=== PATIENT | female | born 1970 | race Caucasian/White ===

== ENCOUNTER → 2022-05-03 15:46 | Outpatient (BNVA) | payer OTHER, SELFPAY | PROVIDERS: Visit Provider Internal Medicine Endocrinology, Diabetes & Metabolism | DX: M81.0 Age-related osteoporosis without current pathological fracture (principal) ==

== ENCOUNTER 2022-06-17 14:56 | Outpatient (REF) | payer OTHER, SELFPAY ==
[2022-06-17 16:16] LABS: Alkaline Phosphatase 67 U/L (39-117)
== END 2022-06-17 14:57 | disposition home or self-care (01) ==
LOC: HO.LAB 14:56
PROVIDERS: Visit Provider Internal Medicine Endocrinology, Diabetes & Metabolism
DX: M81.0 Age-related osteoporosis without current pathological fracture (principal)
CPT/HCPCS: 36415; 84075

== ENCOUNTER 2022-06-20 08:17 | Outpatient (REF) | payer OTHER, SELFPAY ==
[2022-06-20 09:08] LABS: Creatinine, mg/dL 60.82
[2022-06-20 14:02] LABS: Creatinine, 24Hr Urine 0.9 G/Day (1.0-2.0); Total Volume 24 Hour Urine 1550 mL
[2022-06-21 16:53] LABS: Calcium, 24 Hr Urine 141 mg/24 h; Calcium/Creatinine Ratio 154 mg/g creat (30-275); Creatinine 24Hr Urine 0.91 g/24 h (0.50-2.15)
== END 2022-06-20 08:18 | disposition home or self-care (01) ==
LOC: HO.LNP 08:17
PROVIDERS: Visit Provider Internal Medicine Endocrinology, Diabetes & Metabolism
DX: M81.0 Age-related osteoporosis without current pathological fracture (principal)
CPT/HCPCS: 82340; 82570

== ENCOUNTER → 2022-08-30 15:52 | Outpatient (BNVA) | payer OTHER, SELFPAY | PROVIDERS: Visit Provider Internal Medicine Endocrinology, Diabetes & Metabolism ==

== ENCOUNTER → 2022-09-20 07:57 | Outpatient (BNVA) | payer OTHER, SELFPAY | PROVIDERS: Visit Provider Internal Medicine Endocrinology, Diabetes & Metabolism | DX: M81.0 Age-related osteoporosis without current pathological fracture (principal) | CPT/HCPCS: 96372; J3111 ==

== ENCOUNTER 2022-10-21 08:01 | Outpatient (AMB) | payer OTHER, SELFPAY ==
--- NOTE | 2022-10-21 08:23 | AM.OFFVISNUR ---
Intake Intake Visit Reasons: Evenity #2 Allergies No Known Allergies Allergy (Verified 08/30/22 16:09) Office Meds romosozumab-aqqg Performing Provider: Arslan Fall MD Administered by: Jose De Jesus Abarca RN on 10/21/22 08:15 Dose Route Admin Location Lot Number Expiration Date [employer] Financial Reporting Analyst 210 mg subcut right and left arms [id number] 01/07/25 56980-049-83 AMGEN Comments: consent obtained for Evenity injection. Coding Diagnoses Assessment & Plan Assessment & Plan Orders: Orders AMB Romosozumab Injection Patient Supplied Today M81.0 - Age-related osteoporosis without current pathological fracture
== END 2022-10-21 08:19 | disposition home or self-care (01) ==
PROVIDERS: Visit Provider Internal Medicine Endocrinology, Diabetes & Metabolism
DX: M81.0 Age-related osteoporosis without current pathological fracture (principal)

== ENCOUNTER → 2022-10-21 08:01 | Outpatient (BNVA) | payer OTHER, SELFPAY | PROVIDERS: Visit Provider Internal Medicine Endocrinology, Diabetes & Metabolism | DX: M81.0 Age-related osteoporosis without current pathological fracture (principal) | CPT/HCPCS: 96372; J3111 ==

== ENCOUNTER 2022-10-21 08:23 | Outpatient (REF) | payer OTHER, SELFPAY ==
[2022-10-25 10:44] LABS: Prot Elec - Albumin 4.3 g/dL (3.8-4.8); Prot Elec - Alpha1 0.3 g/dL (0.2-0.3); Prot Elec - Alpha2 0.7 g/dL (0.5-0.9); Prot Elec - Beta 1 0.4 g/dL (0.4-0.6); Prot Elec - Beta 2 0.3 g/dL (0.2-0.5)
== END 2022-10-21 08:24 | disposition home or self-care (01) ==
LOC: HO.10HDL 08:23
PROVIDERS: Visit Provider Internal Medicine Endocrinology, Diabetes & Metabolism
DX: M81.0 Age-related osteoporosis without current pathological fracture (principal)
CPT/HCPCS: 84165; 86335

== ENCOUNTER 2022-11-30 14:48 | Outpatient (REF) | payer OTHER, SELFPAY ==
[2022-11-30 16:09] LABS: Anion Gap 9 (12-20); Blood Urea Nitrogen 10 mg/dL (9-16); Calcium 9.4 mg/dL (8.4-10.2); Carbon Dioxide 27 mmol/L (22-29); Chloride 107 mmol/L (96-108); Estimated Glomerular Filt Rate > 60; Glucose Random 95 mg/dL (60-115); Potassium 3.7 mmol/L (3.3-5.1); Sodium 139 mmol/L (135-145)
== END 2022-11-30 14:49 | disposition home or self-care (01) ==
LOC: HO.LAB 14:48
PROVIDERS: PCP Student in an Organized Health Care Education/Training Program; Visit Provider Internal Medicine Endocrinology, Diabetes & Metabolism
DX: M81.0 Age-related osteoporosis without current pathological fracture (principal)
CPT/HCPCS: 36415; 80048

== ENCOUNTER 2022-12-01 10:59 | Outpatient (AMB) | payer OTHER, SELFPAY ==
--- NOTE | 2022-12-01 11:34 | AM.OFFVISNUR ---
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 bilateral upper posterior arms SQ. patient tolerated well with no bleeding. advised to schedule next dose in one month. Coding Diagnoses Assessment & Plan Assessment & Plan Orders: Orders AMB Romosozumab Injection Patient Supplied Today M81.0 - Age-related osteoporosis without current pathological fracture
== END 2022-12-01 11:20 | disposition home or self-care (01) ==
PROVIDERS: PCP Student in an Organized Health Care Education/Training Program; Visit Provider Internal Medicine Endocrinology, Diabetes & Metabolism
DX: M81.0 Age-related osteoporosis without current pathological fracture (principal)

== ENCOUNTER → 2022-12-01 | Outpatient (BNVA) | payer OTHER, SELFPAY | PROVIDERS: PCP Student in an Organized Health Care Education/Training Program; Visit Provider Internal Medicine Endocrinology, Diabetes & Metabolism | DX: M81.0 Age-related osteoporosis without current pathological fracture (principal) | CPT/HCPCS: 96372; J3111 ==

== ENCOUNTER 2023-01-03 15:53 | Outpatient (AMB) | payer OTHER, SELFPAY ==
[2023-01-03 15:56] VITALS: BP 100/68; PULSE 84; BMI 21.9
--- NOTE | 2023-01-03 15:56 | MHC.OFFVIS ---
Intake Vital Signs 01/03/23 15:56 Height 5 ft 4.61 in Weight 130 lb 1.164 oz BMI 21.9 BP 100/68 Blood Pressure Location Lt brachial Position Sitting Pulse 84 Pulse Source Pulse Oximeter Intake Visit Reasons: F/Up Osteoporosis/LVM Intake Note: Patient present today for Osteoporosis follow up visit. Materials Management Supervisor Required: No Accompanied by: Self / Same As Patient Allergies No Known Allergies Allergy (Verified 01/03/23 16:00) Medication List - Last Reconciled 01/03/23 by Arslan Fall MD romosozumab-aqqg (Evenity) 210 mg (2.34 mL) subcut .monthly valacyclovir 2,000 mg PO BID PRN HPI HPI Comments History of Present Illness Details 52 YO Female with is seen in consultation at the request of PCP for Osteoporosis. First diagnosed in couple of mos ago . Not Received treatment in the past. History of pathologic fracture broken rib from bra but no ONJ. Has several servings of dietary calcium per day in the form of broccoli and cottage cheese and OJ . Takes Calcium supplement 1200 mg daily in divided doses. Takes 600 IU of Vitamin D BID . Denies ever using PPI, anticoagulant, antiepileptic or glucocorticoid medication. Does weight bearing exercise 3 days per week in the form of waliking and tramboline . 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 UTD on dental cleanings and sees dentist every 6 months. No planned upcoming dental work or extractions. DXA dated 12/14/2021: T-score the femoral neck is -3.0 Labs: Secondary workup is negative Currently receiving Evenity injection started 09/2022 [facility] Medical History (Updated 05/03/22 @ 15:59 by Arslan Fall MD) Osteoporosis Surgical History Hx of colonoscopy with polypectomy Hx of screening mammography Family History Mother Lung cancer, Onset Age: 79 Father Arthritis Lymphoma Hypertension Maternal Uncle Colon cancer Maternal Grandfather Colon cancer Maternal Aunt Breast cancer Social History Household Members: Spouse and Children Household Members Other:: , 2 kids Alcohol intake: current Alcohol intake frequency: holidays/special occasions only Patient Tobacco Use Status: Never used Tobacco e-Cigarette/Vaping Use: Never Used Second Hand Smoke Exposure: Yes Physical Exam Vital Signs: Last Vital Signs Pulse 84 01/03/23 15:56 BP 100/68 01/03/23 15:56 BMI result Body Mass Index 21.9 Assessment & Plan Assessment & Plan (1) Osteoporosis: Code(s): M81.0 - Age-related osteoporosis without current pathological fracture Plan: This is a 52-year-old white female found to have osteoporosis. Secondary causes ruled out . Currently on Evenity since September 2019 The plan is to continue the Evenity. Will check basic metabolic panel and calcium in 2 months Orders: Orders AMB Romosozumab Injection Patient Supplied Today M81.0 - Age-related osteoporosis without current pathological fracture Calcium 2 Months M81.0 - Age-related osteoporosis without current pathological fracture Albumin Level 2 Months M81.0 - Age-related osteoporosis without current pathological fracture Basic Metabolic Panel 2 Months M81.0 - Age-related osteoporosis without current pathological fracture Medications: New romosozumab-aqqg 210 mg (2.34 mL) subcut ONCE 2.34 mL 0RF M81.0 - Age-related osteoporosis without current pathological fracture Coding Level of Care Code Est Pt Level 3 (14330) Diagnoses Osteoporosis M81.0
== END 2023-01-03 16:28 | disposition home or self-care (01) ==
PROVIDERS: PCP Student in an Organized Health Care Education/Training Program; Visit Provider Internal Medicine Endocrinology, Diabetes & Metabolism
DX: M81.0 Age-related osteoporosis without current pathological fracture (principal)
CPT/HCPCS: 99213

== ENCOUNTER 2023-01-03 15:53 | Outpatient (AMB) | payer OTHER, SELFPAY ==
--- NOTE | 2023-01-03 16:29 | AM.OFFVISNUR ---
Intake Intake Visit Reasons: Evenity Allergies No Known Allergies Allergy (Verified 01/03/23 16:00) Office Meds romosozumab-aqqg 210 mg/2.34 mL(105 mg/1.17 mL x2)subcutaneous syringe Performing Provider: Arslan Fall MD [place] [facility] [place] Administered by: Edison Darnell RN on 01/03/23 16:31 Dose Route Admin Location Dispensed Lot Number Expiration Date [facility] [employer] 210 mg subcut L and R arm 2.34 mL [id number] 01/07/25 AMGEN Coding Assessment & Plan Assessment & Plan Orders: Orders AMB Romosozumab Injection Patient Supplied Today M81.0 - Age-related osteoporosis without current pathological fracture
== END 2023-01-03 16:32 | disposition home or self-care (01) ==
PROVIDERS: PCP Student in an Organized Health Care Education/Training Program; Visit Provider Internal Medicine Endocrinology, Diabetes & Metabolism
DX: M81.0 Age-related osteoporosis without current pathological fracture (principal)

== ENCOUNTER → 2023-01-03 15:53 | Outpatient (BNVA) | payer OTHER, SELFPAY | PROVIDERS: PCP Student in an Organized Health Care Education/Training Program; Visit Provider Internal Medicine Endocrinology, Diabetes & Metabolism | DX: M81.0 Age-related osteoporosis without current pathological fracture (principal) | CPT/HCPCS: 96372; J3111 ==

== ENCOUNTER 2023-02-06 07:47 | Outpatient (AMB) | payer OTHER, SELFPAY ==
--- NOTE | 2023-02-06 08:18 | AM.OFFVISNUR ---
Intake Intake Visit Reasons: evenity Allergies No Known Allergies Allergy (Verified 01/03/23 16:00) Office Meds romosozumab-aqqg 210 mg/2.34 mL(105 mg/1.17 mL x2)subcutaneous syringe Performing Provider: Arslan Fall MD Performing Location: [facility] [place] [facility] Administered by: Falguni Mathew LPN on 02/06/23 08:18 Dose Route Admin Location Dispensed Lot Number Expiration Date [place] Juice Scaleman 210 mg subcut Right arm, left stomach 2.34 mL [id number] 01/07/25 AMGEN Coding Assessment & Plan Assessment & Plan Orders: Orders AMB Romosozumab Injection Patient Supplied Today M81.0 - Age-related osteoporosis without current pathological fracture Medications: Refilled romosozumab-aqqg (Evenity) 210 mg (2.34 mL) subcut .monthly 2.34 mL 11RF
--- NOTE | 2023-02-06 08:26 | AM.OFFVISNUR ---
Intake Intake Visit Reasons: evenity Allergies No Known Allergies Allergy (Verified 01/03/23 16:00) Office Meds romosozumab-aqqg 210 mg/2.34 mL(105 mg/1.17 mL x2)subcutaneous syringe Performing Provider: Arslan Fall MD Performing Location[place] [facility] [place] Administered by: Falguni Mathew LPN on 02/06/23 08:18 Dose Route Admin Location Dispensed Lot Number Expiration Date [employer] Mobile Tester 210 mg subcut Right arm, left stomach 2.34 mL [id number] 01/07/25 AMGEN Coding Assessment & Plan Assessment & Plan Orders: Orders AMB Romosozumab Injection Patient Supplied Today M81.0 - Age-related osteoporosis without current pathological fracture AMB Romosozumab Injection Patient Supplied Today M81.0 - Age-related osteoporosis without current pathological fracture Medications: New romosozumab-aqqg 210 mg (2.34 mL) subcut ONCE 2.34 mL 0RF M81.0 - Age-related osteoporosis without current pathological fracture Refilled romosozumab-aqqg (Evenity) 210 mg (2.34 mL) subcut .monthly 2.34 mL 11RF
== END 2023-02-06 08:20 | disposition home or self-care (01) ==
PROVIDERS: PCP Student in an Organized Health Care Education/Training Program; Visit Provider Internal Medicine Endocrinology, Diabetes & Metabolism
DX: M81.0 Age-related osteoporosis without current pathological fracture (principal)

== ENCOUNTER → 2023-02-06 07:47 | Outpatient (BNVA) | payer OTHER, SELFPAY | PROVIDERS: PCP Student in an Organized Health Care Education/Training Program; Visit Provider Internal Medicine Endocrinology, Diabetes & Metabolism | DX: M81.0 Age-related osteoporosis without current pathological fracture (principal) | CPT/HCPCS: 96372; J3111 ==

== ENCOUNTER 2023-03-09 08:01 | Outpatient (AMB) | payer OTHER, SELFPAY ==
--- NOTE | 2023-03-09 08:07 | AM.OFFVISNUR ---
Intake Intake Visit Reasons: Evenity Allergies No Known Allergies Allergy (Verified 01/03/23 16:00) Office Meds romosozumab-aqqg 210 mg/2.34 mL(105 mg/1.17 mL x2)subcutaneous syringe Performing Provider: Arslan Fall MD Performing Location: [facility] Endocr[facility] Administered by: Edison Darnell RN on 03/09/23 08:07 Dose Route Admin Location Dispensed Lot Number Expiration Date [facility] Supervisor Cold Rolling 210 mg subcut R arm and L abd 2.34 mL [id number] 06/07/25 AMGEN Comments: Patient consented to Evenity injections. Denies adverse reactions. Coding Assessment & Plan Assessment & Plan Orders: Orders AMB Romosozumab Injection Patient Supplied Today M81.0 - Age-related osteoporosis without current pathological fracture
== END 2023-03-09 08:09 | disposition home or self-care (01) ==
PROVIDERS: PCP Student in an Organized Health Care Education/Training Program; Visit Provider Internal Medicine Endocrinology, Diabetes & Metabolism
DX: M81.0 Age-related osteoporosis without current pathological fracture (principal)

== ENCOUNTER → 2023-03-09 08:01 | Outpatient (BNVA) | payer OTHER, SELFPAY | PROVIDERS: PCP Student in an Organized Health Care Education/Training Program; Visit Provider Internal Medicine Endocrinology, Diabetes & Metabolism | DX: M81.0 Age-related osteoporosis without current pathological fracture (principal) | CPT/HCPCS: 96372; J3111 ==